=== PATIENT | female | born 1975 | race Caucasian/White ===

== ENCOUNTER 2024-06-29 18:47 | Emergency (ER) | payer MEDICAID, OTHER ==
[~2024-06-29] VITALS: Ht 152.4 cm; Wt 68.0 kg
[2024-06-29 18:50] VITALS: TEMP 36.8; O2SAT 99
[2024-06-29 19:41] VITALS: BP 131/84; PULSE 84; RESP 18
[2024-06-29] MEDS: IBUPROFEN 600MG TABLET PO ONE (19:41)
[2024-06-29] MEDS ORDERED: IBUP-2029 MT (20:40)
== END 2024-06-29 21:17 | disposition home or self-care (01) ==
LOC: ER 18:47
DX: S46.091A Other injury of muscle(s) and tendon(s) of the rotator cuff of right shoulder, initial encounter (principal); Z87.891 Personal history of nicotine dependence; X58.XXXA Exposure to other specified factors, initial encounter; Y93.89 Activity, other specified; Y92.89 Other specified places as the place of occurrence of the external cause; Y99.9 Unspecified external cause status
CPT/HCPCS: 73050; 99283